=== PATIENT | male | born 1950 | race Caucasian/White ===

== ENCOUNTER 2019-11-14 08:28 | Inpatient (IN) | payer MEDICARE ==
[~2019-11-14] VITALS: Ht 188 cm; Wt 105.2 kg
[2019-11-14] MEDS ORDERED: IV NORMAL SALINE 1,000ML 1,000 ML IV ONE (08:45)
--- NOTE | 2019-11-14 08:46 | PHYS DOC ---
General Adult EDM: Chief Complaint: ALTERED MENTAL STATUS HPI: HPI: 69-year-old male presents via EMS from his rehab facility. He was brought here with reported altered mental status. Last known well was last night. He has reported dementia, but is typically alert and oriented. He is able to tell us h is name and Social Security number, but his answers do not really make sense to any other questions. When I asked him if he has any pain he states "28 or 38". He occasionally chuckles to himself. He is unable to provide any other useful history. Review of Systems: Review of Systems: Unable to obtain due to altered mental status Heart Score: Risk Factors: Risk Factors: DM, Current or recent (<one month) smoker, HTN, HLP, family history of CAD, obesity. Risk Scores: Score 0 - 3: 2.5% MACE over next 6 weeks - Discharge Home Score 4 - 6: 20.3% MACE over next 6 weeks - Admit for Clinical Observation Score 7 - 10: 72.7% MACE over next 6 weeks - Early Invasive Strategies Current Medications: Current Meds: Current Medications Medications (Trade) Dose Ordered Sig/Jerome Start Time Stop Time Status Last Admin Dose Admin Sodium Chloride 1,000 ml @ 1,000 mls/hr 1X ONCE 11/14/19 08:45 11/14/19 09:44 Allergies: Allergies: Allergies Coded Allergies Type Severity Reaction Last Updated Verified No Known Drug Allergies 11/14/19 No Physical Exam: PE: Constitutional: Well developed, well nourished, no acute distress. [] HENT: Normocephalic, atraumatic, bilateral external ears normal, oropharynx very dry, no oral exudates, nose normal. [] Eyes: PERRLA, EOMI, conjunctiva normal, no discharge. [] Neck: No tenderness, supple, no stridor. [] Cardiovascular: Heart rate 107, regular rhythm, no murmur [] Lungs & Thorax: Bilateral breath sounds clear to auscultation [] Abdomen: Bowel sounds normal, soft, suprapubic tenderness, no masses, no pulsatile masses. [] Skin: Warm, dry, scaly, no erythema, no rash. [] Back: No tenderness, no CVA tenderness. [] Extremities: No tenderness, no cyanosis, cam boot on left leg. [] Neurologic: Alert to person, normal motor function, normal sensory function, no focal deficits noted. [] Psychologic: Unable to ascertain [] EKG: EKG: Sinus tachycardia, rate 107, leftward axis, no ST elevations or depressions. [] Radiology/Procedures: Radiology/Procedures: [] Impressions: CHEST AP ONLY INDICATION: AMS COMPARISON STUDY: None. FINDINGS: Lungs: Normal lung volume. No confluent consolidation. Slight central vascular indistinctness. Pleura: No pleural effusion or pneumothorax. Heart and Mediastinum: Cardiomegaly. Great vessels of the thorax are normal. IMPRESSION: Slight central vascular indistinctness, possibly trace interstitial edema. No confluent consolidation. Electronically signed by: Olu Hernandes MD (11/14/2019 9:11 AM) [id number] DICTATED AND SIGNED BY: OLU HERNANDES MD DATE: 11/14/19 0911 CC: BRAVO WHITE DO; POLLO MONACO MD ~ CT HEAD WO CONTRAST Date: 11/14/2019 8:31 AM Clinical Indication: AMS Comparison: None. Technique: 5 mm axial tomographic images were obtained of the head without contrast. These were viewed on brain and bone windows. One or more of the following dose reduction techniques were utilized: Automated exposure control (AEC), Adjustment of mA and/or kV according to patient size, Use of iterative reconstruction technique such as ASiR, CT scan done according to ALARA and image gently/image wisely Findings: Moderate generalized cerebral and cerebellar volume loss. Moderate nonspecific periventricular hypoattenuation, most commonly seen with chronic small vessel ischemic disease. Calcified atherosclerosis of the bilateral cavernous and paraclinoid internal carotid arteries and intracranial vertebral arteries. Right thalamic hypoattenuating focus. Chronic left cerebellar lacunar infarcts. No intra- or extra-axial mass or fluid collection. No acute hemorrhage. The ventricles are normal in size, shape, and morphology. The carlos-white matter junction is normal. The subarachnoid cisterns are patent. Opacification of the right maxillary sinus with slight outward bowing of the medial and posterior sanderson, may be due to mucocele. Mucoperiosteal reaction consistent with chronic sinusitis. The visualized portions of the orbits and globes are normal. The mastoid air cells are clear. The clerical supervisor topogram shows no lytic lesion or fracture. Impression: 1. No acute hemorrhage or loss of carlos-white differentiation. 2. Right thalamic hypoattenuating focus, probably chronic lacunar infarct although no priors for comparison. Additional chronic left cerebellar lacunar infarcts. 3. Moderate cerebral volume loss. Moderate chronic small vessel ischemic disease. 4. Opacification of the right maxillary sinus with slight outward bowing of the medial and posterior sanderson, may be due to mucocele. Mucoperiosteal reaction consistent with chronic sinusitis Electronically signed by: Olu Hernandes MD (11/14/2019 9:09 AM) [id number] DICTATED AND SIGNED BY: OLU HERNANDES MD DATE: 11/14/19908 CC: BRAVO WHITE DO; POLLO MONACO MD ~ CT CHEST ABD PELVIS W/CONTRAST Clinical Indication: Suprapubic pain, abnormal chest radiograph COMPARISON: Chest radiograph 11/14/2019 TECHNIQUE: Multiple contiguous axial images were obtained throughout the chest, abdomen, and pelvis with the use of IV contrast. Axial images were reformatted into coronal and sagittal planes. 75 mL Omnipaque 300 was administered. One or more of the following dose reduction techniques were utilized: Automated exposure control (AEC), Adjustment of mA and/or kV according to patient size, Use of iterative reconstruction technique such as ASiR, CT scan done according to ALARA and image gently/image wisely. Findings: The thyroid is symmetric. There is no axillary, mediastinal, or hilar adenopathy. The thoracic aorta diameter is normal. Cardiomegaly. Coronary artery atherosclerotic disease There is no pericardial effusion. The central airways are patent. Bilateral subpleural reticulation and ground glass opacities. Bilateral lower lobe traction bronchiolectasis. No pleural effusion is observed. There is no pneumothorax. Cystic focus along the uncinate process of the pancreas measuring 2.8 x 2.1 cm. The liver, gallbladder, and adrenal glands are unremarkable. Calcified splenic granulomas. No hydronephrosis or opaque urinary calculi There is no significant mesenteric or retroperitoneal adenopathy identified. There is no evidence of free intraperitoneal fluid or pneumoperitoneum. Small hiatal hernia. Extensive sigmoid colon predominant diverticulosis. Trace inflammation around diverticula along the proximal sigmoid colon (series 5 image 121, series 8 image 39). Urinary bladder is decompressed by Hunt catheter. There is no significant pelvic ascites. No significant iliac or inguinal adenopathy is identified. Degenerative changes of the spine. Small right greater than left fat-containing inguinal hernias. IMPRESSION: 1. Extensive diverticulosis with trace inflammation around a sigmoid region diverticula, which may represent a mild acute diverticulitis. 2. Bilateral lung subpleural reticulation and mild groundglass opacities with some traction bronchiolectasis. This likely represents fibrotic change, although some superimposed interstitial edema or infection would be difficult to exclude. 3. Indeterminate 2.8 cm cystic focus along the uncinate process of the pancreas. Recommend comparison with prior outside imaging or further characterization with nonemergent contrast-enhanced MRI abdomen. Electronically signed by: Olu Hernandes MD (11/14/2019 11:51 AM) [id number] DICTATED AND SIGNED BY: OLU HERNANDES MD DATE: 11/14/19 1151 CC: BRAVO WHITE DO; POLLO MONACO MD ~ Course & Med Decision Making: Course & Med Decision Making Pertinent Labs and Imaging studies reviewed. (See chart for details) The patient's chest x-ray is negative for focal pneumonia. His head CT is negative for acute findings. CT of the chest abdomen and pelvis shows possible mild diverticulitis. There is also bilateral groundglass opacities of the lungs. This is thought to likely be fibrotic change. We will do a COVID-19 swab for the patient. See official read for more details. I spoke with Dr. Parker and he has accepted the patient for admission. I have given the patient an initial dose of Zosyn in the ER. [] Dragon Disclaimer: Dragon Disclaimer: This electronic medical record was generated, in whole or in part, using a voice recognition dictation system. Departure Departure: Impression: Primary Impression: Ground glass opacity present on imaging of lung Additional Impressions: Diverticulitis AMS (altered mental status) Qualified Codes: R41.0 - Disorientation, unspecified Disposition: ADMITTED INPATIENT Admitting Physician: Lavon Parker Condition: STABLE Referrals: PCP,UNKNOWN (PCP) Justification of Admission: Justification of Admission: Justification of Admission Dx: Comment: Comments: diverticulitis, AMS, ground glass lung opacities BRAVO WHITE DO Nov 14, 2019 08:46
[2019-11-14 09:02] LABS: BASO # 0.1 x10^3/uL (0.0-0.2); BASO % 1 % (0-3); EOS # 0.1 x10^3/uL (0.0-0.7); EOS % 1 % (0-3); HEMATOCRIT 38.5 % (39.0-53.0); HEMOGLOBIN 13.1 g/dL (13.0-17.5); LYMPH # 0.8 x10^3/uL (1.0-4.8); LYMPH % 10 % (24-48); MEAN CORPUSCULAR HEMOGLOBIN 30 pg (25-35); MEAN CORPUSCULAR HGB CONC 34 g/dL (31-37); MEAN CORPUSCULAR VOLUME 90 fL (79-100); MONO # 0.6 x10^3/uL (0.0-1.1); MONO % 7 % (0-9); NEUT # 6.7 x10^3uL (1.8-7.7); NEUT % 81 % (31-73); PLATELET COUNT 299 x10^3/uL (140-400); WHITE BLOOD COUNT 8.2 x10^3/uL (4.0-11.0)
--- NOTE | 2019-11-14 09:12 | RAD ---
CT HEAD WO CONTRAST Date: 11/14/2019 8:31 AM Clinical Indication: AMS Comparison: None. Technique: 5 mm axial tomographic images were obtained of the head without contrast. These were viewed on brain and bone windows. One or more of the following dose reduction techniques were utilized: Automated exposure control (AEC), Adjustment of mA and/or kV according to patient size, Use of iterative reconstruction technique such as ASiR, CT scan done according to ALARA and image gently/image wisely Findings: Moderate generalized cerebral and cerebellar volume loss. Moderate nonspecific periventricular hypoattenuation, most commonly seen with chronic small vessel ischemic disease. Calcified atherosclerosis of the bilateral cavernous and paraclinoid internal carotid arteries and intracranial vertebral arteries. Right thalamic hypoattenuating focus. Chronic left cerebellar lacunar infarcts. No intra- or extra-axial mass or fluid collection. No acute hemorrhage. The ventricles are normal in size, shape, and morphology. The carlos-white matter junction is normal. The subarachnoid cisterns are patent. Opacification of the right maxillary sinus with slight outward bowing of the medial and posterior sanderson, may be due to mucocele. Mucoperiosteal reaction consistent with chronic sinusitis. The visualized portions of the orbits and globes are normal. The mastoid air cells are clear. The informatica mdm developer topogram shows no lytic lesion or fracture. Impression: 1. No acute hemorrhage or loss of carlos-white differentiation. 2. Right thalamic hypoattenuating focus, probably chronic lacunar infarct although no priors for comparison. Additional chronic left cerebellar lacunar infarcts. 3. Moderate cerebral volume loss. Moderate chronic small vessel ischemic disease. 4. Opacification of the right maxillary sinus with slight outward bowing of the medial and posterior sanderson, may be due to mucocele. Mucoperiosteal reaction consistent with chronic sinusitis Electronically signed by: Addy Hernandes MD (11/14/2019 9:09 AM) [id number]
[2019-11-14 09:13] LABS: CALCIUM 9.8 mg/dL (8.5-10.1); CREATININE 1.2 mg/dL (0.7-1.3); GFR 59.7; POTASSIUM 3.8 mmol/L (3.5-5.1)
--- NOTE | 2019-11-14 09:14 | RAD ---
CHEST AP ONLY INDICATION: AMS COMPARISON STUDY: None. FINDINGS: Lungs: Normal lung volume. No confluent consolidation. Slight central vascular indistinctness. Pleura: No pleural effusion or pneumothorax. Heart and Mediastinum: Cardiomegaly. Great vessels of the thorax are normal. IMPRESSION: Slight central vascular indistinctness, possibly trace interstitial edema. No confluent consolidation. Electronically signed by: Addy Hernandes MD (11/14/2019 9:11 AM) [id number]
[2019-11-14 09:20] LABS: ALBUMIN 3.2 g/dL (3.4-5.0); ALBUMIN/GLOBULIN RATIO 0.7 (1.0-1.7); TOTAL BILIRUBIN 0.6 mg/dL (0.2-1.0); TOTAL PROTEIN 7.9 g/dL (6.4-8.2)
[2019-11-14 09:39] LABS: BACTERIA,URINE 0 /HPF (0-FEW); BILIRUBIN,URINE NEG (NEG); CLARITY,URINE HAZY; COLOR,URINE YELLOW; GLUCOSE,URINE NEG (NEG); NITRITE,URINE NEG (NEG); RBC,URINE OCC /HPF (0-2); SQUAMOUS EPITHELIAL CELL,UR FEW /LPF; UROBILINOGEN,URINE 0.2 mg/dL (0.2 mg/dL); WBC,URINE OCC /HPF (0-4)
[2019-11-14] MEDS ORDERED: IOHEXOL 300 MG/ML 75 ML VIAL. IV ONE (10:30)
--- NOTE | 2019-11-14 11:54 | RAD ---
CT CHEST ABD PELVIS W/CONTRAST Clinical Indication: Suprapubic pain, abnormal chest radiograph COMPARISON: Chest radiograph 11/14/2019 TECHNIQUE: Multiple contiguous axial images were obtained throughout the chest, abdomen, and pelvis with the use of IV contrast. Axial images were reformatted into coronal and sagittal planes. 75 mL Omnipaque 300 was administered. One or more of the following dose reduction techniques were utilized: Automated exposure control (AEC), Adjustment of mA and/or kV according to patient size, Use of iterative reconstruction technique such as ASiR, CT scan done according to ALARA and image gently/image wisely. Findings: The thyroid is symmetric. There is no axillary, mediastinal, or hilar adenopathy. The thoracic aorta diameter is normal. Cardiomegaly. Coronary artery atherosclerotic disease There is no pericardial effusion. The central airways are patent. Bilateral subpleural reticulation and ground glass opacities. Bilateral lower lobe traction bronchiolectasis. No pleural effusion is observed. There is no pneumothorax. Cystic focus along the uncinate process of the pancreas measuring 2.8 x 2.1 cm. The liver, gallbladder, and adrenal glands are unremarkable. Calcified splenic granulomas. No hydronephrosis or opaque urinary calculi There is no significant mesenteric or retroperitoneal adenopathy identified. There is no evidence of free intraperitoneal fluid or pneumoperitoneum. Small hiatal hernia. Extensive sigmoid colon predominant diverticulosis. Trace inflammation around diverticula along the proximal sigmoid colon (series 5 image 121, series 8 image 39). Urinary bladder is decompressed by Hunt catheter. There is no significant pelvic ascites. No significant iliac or inguinal adenopathy is identified. Degenerative changes of the spine. Small right greater than left fat-containing inguinal hernias. IMPRESSION: 1. Extensive diverticulosis with trace inflammation around a sigmoid region diverticula, which may represent a mild acute diverticulitis. 2. Bilateral lung subpleural reticulation and mild groundglass opacities with some traction bronchiolectasis. This likely represents fibrotic change, although some superimposed interstitial edema or infection would be difficult to exclude. 3. Indeterminate 2.8 cm cystic focus along the uncinate process of the pancreas. Recommend comparison with prior outside imaging or further characterization with nonemergent contrast-enhanced MRI abdomen. Electronically signed by: Addy Hernandes MD (11/14/2019 11:51 AM) [id number]
[2019-11-14] MEDS ORDERED: PIPERACILLIN/TAZOBACTAM 3.375 GM in IV NORMAL SALINE 50ML 50 ML IV ONE (12:30)
[2019-11-14] MEDS ORDERED: IV NORMAL SALINE 50ML 50 ML ONE (12:38)
[2019-11-14] MEDS ORDERED: PIPERACILLIN/TAZOBACTAM 3.375 GM VIAL IV ONE (12:38)
[2019-11-14] MEDS ORDERED: HALOPERIDOL LACT 5 MG/ML VIAL. IVP ONE (13:00)
[2019-11-14 13:54] VITALS: BP 148/90
[2019-11-14] MEDS ORDERED: IV NORMAL SALINE 1,000ML 1,000 ML IV SCH (15:00)
--- NOTE | 2019-11-14 15:27 | EKG ---
[address] [address] Test Date: 2019-11-14 Test Time: 08:32:30 Pat Name: BRIAN NEAL Department: Room: Gender: M Vocal Artist: NOEL : [id number] Requested By: BRAVO WHITE Order Number: [id number] Reading MD: Measurements Intervals [place] Rate: 107 P: 47 ND: 144 QRS: -26 QRSD: 100 T: 29 QT: 354 QTc: 478 Interpretive Statements SINUS TACHYCARDIA LEFTWARD AXIS LOW LIMB LEAD VOLTAGE INCOMPLETE RIGHT BUNDLE BRANCH BLOCK NO SPECIFIC ECG ABNORMALITIES RI6.02 No previous ECG available for comparison
[2019-11-14] MEDS: HYDROcodone/APAP 5/325MG 1 TAB TABLET PO PRN ×2 (16:35→16:46)
[2019-11-14] MEDS: ACETAMINOPHEN 650 MG SUPP.RECT. PR PRN (16:49)
--- NOTE | 2019-11-14 17:40 | NUR ---
Pt arrived to ICU-2 via EMS, this nurse and warehouse picker at bedside. Pt did not have any belongings. Pt agitated with any movement or intervention but re-directable. Pt alert to self only, speech is garbled. Temp at admission 99.7 axillary. Skin assesment revealed a pressure ulcer on L buttock, R great toe nail removed, and penis meatus bleeding from when he pulled out indwelling altamirano catheter in ER, no external trauma noted. Ointment was put on pressure ulcer, toe nail bed cleaned with wound cleanser and redressed with bandaid, coccyx skin is race appropriate and intact but mepilex bandage was placed prophylactically. Pt HR elevated in 120's RR 20-30~1630, axillary temp 101.3. Pt given 650mg rectal tylenol. This nurse called patients son/Marco RENEE who informed staff that his father is to be a DNR status.
[2019-11-14] MEDS: PIPERACILLIN/TAZOBACTAM 3.375 GM in IV NORMAL SALINE 50ML 50 ML IV SCH (18:00)
--- NOTE | 2019-11-14 18:14 | NUR ---
rechecked temp -> 102.0, Dr Parker notified of change in status. Telephone orders to DC IVF, IV lopressor PRN, updated code status orders and order AM labs.
[2019-11-14] MEDS: METOPROLOL TARTRATE 5 MG/5 ML VIAL. IV PRN ×2 (19:03→20:29)
[2019-11-14 20:50] VITALS: BP 130/76
[2019-11-14 23:00] VITALS: BP 146/78
[2019-11-15] MEDS: PIPERACILLIN/TAZOBACTAM 3.375 GM in IV NORMAL SALINE 50ML 50 ML IV SCH ×5 (00:57→23:53)
[2019-11-15 03:00] VITALS: BP 127/87
[2019-11-15 06:00] VITALS: BP 133/90
[2019-11-15] MEDS: ACETAMINOPHEN 650 MG SUPP.RECT. PR PRN (06:02)
[2019-11-15 09:05] LABS: BASO # 0.1 x10^3/uL (0.0-0.2); BASO % 1 % (0-3); EOS # 0.1 x10^3/uL (0.0-0.7); EOS % 1 % (0-3); HEMATOCRIT 38.7 % (39.0-53.0); LYMPH # 1.7 x10^3/uL (1.0-4.8); LYMPH % 18 % (24-48); MEAN CORPUSCULAR HEMOGLOBIN 30 pg (25-35); MEAN CORPUSCULAR HGB CONC 34 g/dL (31-37); MEAN CORPUSCULAR VOLUME 90 fL (79-100); MONO # 0.9 x10^3/uL (0.0-1.1); MONO % 10 % (0-9); NEUT # 6.7 x10^3uL (1.8-7.7); NEUT % 71 % (31-73); PLATELET COUNT 271 x10^3/uL (140-400); RED BLOOD COUNT 4.32 x10^6/uL (4.30-5.70); RED CELL DISTRIBUTION WIDTH 14.1 % (11.5-14.5); WHITE BLOOD COUNT 9.4 x10^3/uL (4.0-11.0)
[2019-11-15 09:16] LABS: CREATININE 1.1 mg/dL (0.7-1.3); POTASSIUM 3.3 mmol/L (3.5-5.1)
--- NOTE | 2019-11-15 09:30 | HP ---
ADMIT DATE: 11/15/2019 ATTENDING PHYSICIAN: Dr. Bajwa. CHIEF COMPLAINT: Altered mentation. HISTORY OF PRESENT ILLNESS: The patient is a 69-year-old gentleman who is a [facility] resident due to profound dementia. His baseline is quite demented. He had new onset of altered mentation. He was able to say his name and social security number in the past. He was rambling. He was febrile. He was sent here for further evaluation. In the ED, the CT of the head demonstrated no acute stroke. He has significant atrophy and old strokes. Chest x-ray was fairly unremarkable; however, the CT of the abdomen showed extensive diverticulosis and early diverticulitis around the sigmoid colon diverticula. He has bilateral subpleural reticulation and ground glass opacities due to scarring in the base of the lungs. There is an intermediate 2.8 cystic focus along the uncinate process of the pancreas. No obstruction identified. He was therefore admitted with altered mentation and acute diverticulitis. PAST MEDICAL HISTORY: Gleaned from the old chart. He is unable to give much history. He has a longstanding history of hypertension, COPD, degenerative arthritis and generalized debilitation. CURRENT MEDICATIONS: Reviewed. At the [facility], he was taking a small dosage of metoprolol, aspirin, Cymbalta, and Tylenol. Zosyn was started in the ED. FAMILY HISTORY: Unobtainable. REVIEW OF SYSTEMS: Unobtainable. ALLERGIES: He has no recorded drug allergies. PHYSICAL EXAMINATION: GENERAL: When I saw him, this is an obtunded elderly male who does respond to his name and that is about it. He still remains very lethargic. VITAL SIGNS: Initial blood pressure was 130/76 mmHg, temperature 101.1 degrees Fahrenheit this morning, pulse 98 and regular, oxygen saturation 97% on room air. HEENT: Head is without trauma. Pupils are reactive. Oropharynx is clear. NECK: Supple. No stridor. LUNGS: Shallow respirations. CARDIOVASCULAR: Showed regular heart tones. No gallops. Peripheral pulses are palpable and full. ABDOMEN: Obese, protuberant. Hypoactive bowel sounds. No guarding or rebound tenderness. EXTREMITIES: Show no cyanosis or edema. SKIN: Warm and dry. NEUROLOGIC: Profound dementia with obtundation. I am not familiar with him, so we really do not know what his baseline is at this time. LABORATORY STUDIES: His hemoglobin initially was 13.1 g/dL with white count of 8200. Chemistry panel: Sodium 137 mEq, potassium 3.8, creatinine is 1.2 mg/dL. The obligatory troponin levels unremarkable. Nonfasting blood sugar 134 mg/dL. ASSESSMENT: 1. A 69-year-old gentleman with altered mentation. 2. Febrile illness on the basis of acute diverticulitis of the sigmoid colon. 3. Profound dementia. 4. Hypertension. 5. Mild tachyarrhythmia treated with intravenous beta blockers. PLAN: 1. Admit to the inpatient unit. 2. COVID-19 swab pending. 3. Zosyn has been started for antibiotic therapy. 4. Clear liquids for now. 5. Serial chemistries. The patient is a DNR per advanced directives. We should respect these wishes. JASON BAJWA MD DR: ZULEIMA/brit JOB#: [id number] / [id number]
[2019-11-15] MEDS: ASPIRIN ENTERIC COATED 81 MG TABLET.DR. PO SCH (10:00)
[2019-11-15] MEDS: DULoxetine HCL 60 MG CAPSULE.DR PO SCH (10:00)
--- NOTE | 2019-11-15 10:26 | NUR ---
Attempted to give patient his AM medications, was able to sip water and eat apple sauce with assistance. He refused to swallow pills though, even with applesauce. He pocketed pills in his mouth and then subsequently spit them out. He refused further sips of water or bites of apple sauce. Medication education provided, patient refused AM meds.
[2019-11-15 11:00] VITALS: BP 111/74
[2019-11-15 16:00] VITALS: BP 137/82
[2019-11-15] MEDS: ACETAMINOPHEN 325 MG TABLET PO PRN (18:04)
[2019-11-15] MEDS: METOPROLOL TARTRATE 5 MG/5 ML VIAL. IV PRN (19:36)
[2019-11-16] MEDS: PIPERACILLIN/TAZOBACTAM 3.375 GM in IV NORMAL SALINE 50ML 50 ML IV SCH ×3 (06:00→20:20)
[2019-11-16 06:14] VITALS: BP 125/64
[2019-11-16] MEDS ORDERED: DULO60CA6 PO (07:47)
[2019-11-16] MEDS ORDERED: HYDR-3165 PO (07:47)
[2019-11-16] MEDS ORDERED: CALC300T5 PO (07:47)
[2019-11-16] MEDS ORDERED: TAMS0.4C97 PO (07:47)
[2019-11-16] MEDS ORDERED: ASPI-889 PO (07:47)
[2019-11-16] MEDS ORDERED: CLOB15CR TP (07:47)
[2019-11-16] MEDS: ACETAMINOPHEN 325 MG TABLET PO PRN (07:58)
[2019-11-16] MEDS: DULoxetine HCL 60 MG CAPSULE.DR PO SCH (07:58)
[2019-11-16] MEDS: ASPIRIN ENTERIC COATED 81 MG TABLET.DR. PO SCH (07:58)
[2019-11-16] MEDS: METOPROLOL TARTRATE 5 MG/5 ML VIAL. IV PRN (07:59)
--- NOTE | 2019-11-16 08:46 | NUR ---
IP: patient PUI for COVID-19, requires contact and airborne precautions.
[2019-11-16 09:09] VITALS: BP 105/76
[2019-11-16 09:20] LABS: BASO # 0.1 x10^3/uL (0.0-0.2); BASO % 1 % (0-3); EOS # 0.4 x10^3/uL (0.0-0.7); EOS % 6 % (0-3); HEMATOCRIT 39.2 % (39.0-53.0); HEMOGLOBIN 13.2 g/dL (13.0-17.5); LYMPH # 1.4 x10^3/uL (1.0-4.8); LYMPH % 18 % (24-48); MEAN CORPUSCULAR HEMOGLOBIN 30 pg (25-35); MEAN CORPUSCULAR HGB CONC 34 g/dL (31-37); MEAN CORPUSCULAR VOLUME 89 fL (79-100); MONO # 0.7 x10^3/uL (0.0-1.1); MONO % 9 % (0-9); NEUT # 5.2 x10^3uL (1.8-7.7); NEUT % 67 % (31-73); PLATELET COUNT 267 x10^3/uL (140-400); RED CELL DISTRIBUTION WIDTH 14.1 % (11.5-14.5); WHITE BLOOD COUNT 7.8 x10^3/uL (4.0-11.0)
[2019-11-16 09:34] LABS: CALCIUM 8.8 mg/dL (8.5-10.1); CREATININE 1.3 mg/dL (0.7-1.3); GFR 54.4; POTASSIUM 3.1 mmol/L (3.5-5.1)
[2019-11-16] MEDS ORDERED: POTASSIUM CHLORIDE 20 MEQ TABLET.ER. PO ONE (10:00)
[2019-11-16 11:00] VITALS: BP 111/74
--- NOTE | 2019-11-16 11:45 | PN ---
DATE: 11/16/2019 ATTENDING PHYSICIAN: Dr. Bajwa. CHIEF COMPLAINT: Altered mentation and fevers. SUBJECTIVE: The patient is much more alert today and he has woken up. He did respond to some questions. He knows his name and Social Security number. He does not know where he is or the time. OBJECTIVE FINDINGS: VITAL SIGNS: His temperature ____ 100.8 yesterday afternoon. This morning, I have a reading of 99.1 degrees Fahrenheit. Blood pressure is 125/64. Heart rate alternates between 80 and a 125-130 per minute. He has responded to intermittent doses of intravenous beta blockade. His oxygen saturations are 94% on room air. HEENT: Head is without trauma. Pupils are reactive. Sclerae nonicteric. Oropharynx is clear. NECK: Supple. LUNGS: Fairly good breath sounds. No rhonchi. CARDIOVASCULAR: Showed regular heart tones. No obvious gallops. Peripheral pulses are palpable and full. ABDOMEN: Distended. He has very minimal guarding on deep palpation of the left lower quadrant. There is no rebound tenderness. There are no masses palpated and bowel sounds are hypoactive. EXTREMITIES: Without edema. NEUROLOGIC FINDINGS: He is pleasantly confused, but not agitated. SKIN: Warm and dry. LABORATORY STUDIES: There is a ____ that is ordered and is pending that has not been resulted yet. I reviewed his CT of the abdomen again and the diverticulosis is extensive and the diverticulitis is mild. ASSESSMENT: 1. A 69-year-old gentleman with altered mentation improved. 2. Acute diverticulitis of sigmoid colon. 3. Underlying dementia. 4. Intermittent tachyarrhythmia, not symptomatic at this time. 5. Febrile illness on the basis of diverticulitis. 6. Essential hypertension, currently normotensive. PLAN: 1. Keep in the unit. 2. COVID-19 swab is still pending. 3. Zosyn will be continued. 4. Flagyl added for increased coverage. 5. Advance diet as tolerated. 6. Serial chemistries. JASON BAJWA MD DR: ZULEIMA/brit JOB#: [id number] / [id number]
[2019-11-16 16:00] VITALS: BP 120/83
--- NOTE | 2019-11-16 18:17 | NUR ---
PT neg covid. PT had some moments of lucidity, than back to confused. PT is cont vs incont based on mentation. Pt is unable to verbalize understanding of poc. PT did tolerate regular food today. Marium SAHU
[2019-11-16 19:50] VITALS: BP 134/85
[2019-11-16] MEDS: CLOBETASOL EMOLLIENT 0.05% TOPICAL CREAM 15GM TUBE. TP PRN (20:48)
[2019-11-16] MEDS: METOPROLOL SUCC 24HR ER 50 MG TAB.ER.24H. PO SCH (20:48)
[2019-11-16] MEDS ORDERED: TAMSULOSIN 0.4 MG CAP.ER.24H. PO SCH (21:00)
[2019-11-17] MEDS: PIPERACILLIN/TAZOBACTAM 3.375 GM in IV NORMAL SALINE 50ML 50 ML IV SCH ×3 (00:01→12:30)
[2019-11-17 02:54] VITALS: BP 126/77
--- NOTE | 2019-11-17 04:55 | NUR ---
Pt took HS medications crushed in ice cream, then independently fed himself the rest. Pt is cont vs incont based on mentation but was able to void in urinal x2 with assist. Pt slept off and on during night. Confused most of the night, talking in room about various topics (cattle cars, baseball, leaving for work, being caught stealing...etc). Pt had some very small moments of lucidity, but then back to baseline confused. Pt would often yell out to staff that walked by. Bed alarm on.
[2019-11-17 06:00] VITALS: BP 138/86
[2019-11-17 06:41] LABS: BASO # 0.1 x10^3/uL (0.0-0.2); BASO % 1 % (0-3); EOS # 0.4 x10^3/uL (0.0-0.7); EOS % 5 % (0-3); HEMOGLOBIN 12.8 g/dL (13.0-17.5); LYMPH # 1.6 x10^3/uL (1.0-4.8); LYMPH % 19 % (24-48); MEAN CORPUSCULAR HEMOGLOBIN 30 pg (25-35); MEAN CORPUSCULAR HGB CONC 34 g/dL (31-37); MEAN CORPUSCULAR VOLUME 89 fL (79-100); MONO # 0.9 x10^3/uL (0.0-1.1); MONO % 11 % (0-9); NEUT # 5.4 x10^3uL (1.8-7.7); NEUT % 64 % (31-73); PLATELET COUNT 279 x10^3/uL (140-400); RED BLOOD COUNT 4.28 x10^6/uL (4.30-5.70); RED CELL DISTRIBUTION WIDTH 13.8 % (11.5-14.5); WHITE BLOOD COUNT 8.4 x10^3/uL (4.0-11.0)
[2019-11-17 06:52] LABS: CALCIUM 9.1 mg/dL (8.5-10.1); CREATININE 1.3 mg/dL (0.7-1.3); GFR 54.4; POTASSIUM 3.3 mmol/L (3.5-5.1)
[2019-11-17] MEDS: METOPROLOL SUCC 24HR ER 50 MG TAB.ER.24H. PO SCH (07:59)
[2019-11-17] MEDS: CLOBETASOL EMOLLIENT 0.05% TOPICAL CREAM 15GM TUBE. TP PRN (07:59)
[2019-11-17] MEDS: DULoxetine HCL 60 MG CAPSULE.DR PO SCH (07:59)
[2019-11-17] MEDS: ASPIRIN ENTERIC COATED 81 MG TABLET.DR. PO SCH (07:59)
[2019-11-17] MEDS: HYDROcodone/APAP 5/325MG 1 TAB TABLET PO PRN (07:59)
[2019-11-17] MEDS ORDERED: ONDANSETRON PF 4 MG/2 ML VIAL. ONE (08:04)
[2019-11-17] MEDS ORDERED: LACTOBACILLUS RHAMNOSUS GG 1 CAPSULE. PO SCH (09:00)
--- NOTE | 2019-11-17 10:53 | DS ---
DATE OF DISCHARGE: 11/17/2019 ATTENDING PHYSICIAN: Dr. Bajwa. FINAL DISCHARGE DIAGNOSES: 1. Altered mentation, resolved. 2. Febrile illness, acute diverticulitis of sigmoid colon, improved. 3. Profound dementia, back to baseline. 4. Essential hypertension. 5. Mild tachyarrhythmia treated with beta blockers. HISTORY AND PHYSICAL: The patient is a 69-year-old gentleman, resident of [facility]. He has underlying dementia. He was sent into the ED with altered mentation, low-grade fevers. A chest x-ray was particularly nondiagnostic; however, the CT of the abdomen showed extensive diverticulosis and early diverticulitis around the sigmoid colon. He was admitted for further treatment and evaluation. There is also an intermediate 2.8 cystic focus along the uncinate process of the pancreas. Etiology of this is unclear. This will be followed up. No bowel obstruction was identified. PHYSICAL EXAMINATION: Please see the dictated note. PERTINENT LABORATORY AND X-RAY STUDIES: Admission hemoglobin was 13.1 g/dL, white count 8200, repeated was 12.8 grams with a white count of 8400. Chemistry panel showed stable BUN and creatinine. Creatinine was 1.3 mg/dL, potassium 3.3 mEq, sodium 138. This will be followed up as an outpatient. He was not symptomatic. COURSE IN THE HOSPITAL: The patient was treated with 4 days of intravenous antibiotics, Zosyn, dose adjusted for renal clearance as well as Flagyl. He did well. He was more alert. Obtundation resolved and he was back to his baseline. He remained very confused as to person, place or time. On the fourth hospital day, his vital signs were quite stable. His blood pressure was 138/86 with a pulse of 81 and regular. He has some tachyarrhythmias, which was treated with empiric beta blockade. Temperature was afebrile with a temperature of 97.8 degrees Fahrenheit, and oxygen saturation were 96% on room air. His lungs were clear. Abdomen was soft and his left lower quadrant pain and discomfort had subsided. Therefore, he was ready for discharge back to [facility]. I recommended 7 more days of Augmentin 875 b.i.d. He should continue his aspirin 81 mg daily, Cymbalta 60 mg daily, hydrocodone p.r.n. pain, Flomax as well as metoprolol 50 b.i.d. I suggested some potassium supplementation, K-Dur 20 mEq daily for 7 days. He remains a DNR per advanced directive. He was discharged from our hospital in stable condition with explicit instructions and followup care. JASON BAJWA MD DR: [email or web address]/brit JOB#: [id number] / [id number] POLLO Tinoco MD
[2019-11-17 11:28] VITALS: BP 142/86
--- NOTE | 2019-11-17 11:57 | NUR ---
pt confused most of the day. Unable to follow commands or participate in PT/OT. PT to go back to [facility] today. Will give report prior to departure. Antony SAHU
[2019-11-17 12:31] VITALS: BP 146/88
--- NOTE | 2019-11-17 14:17 | NUR ---
report given to emely moreau. Pt will go by [facility]. Antony SAHU
== END 2019-11-17 16:00 | DRG 391 ==
LOC: ER 08:28 → ICU 12:40
PROVIDERS: ADMIT Hospitalist; ATTEND Hospitalist
DX: K57.32 Diverticulitis of large intestine without perforation or abscess without bleeding (principal); G93.41 Metabolic encephalopathy; F03.90 Unspecified dementia, unspecified severity, without behavioral disturbance, psychotic disturbance, mood disturbance, and anxiety; I10 Essential (primary) hypertension; J44.9 Chronic obstructive pulmonary disease, unspecified; R00.0 Tachycardia, unspecified; K57.30 Diverticulosis of large intestine without perforation or abscess without bleeding; Z20.828 Contact with and (suspected) exposure to other viral communicable diseases; M19.90 Unspecified osteoarthritis, unspecified site; Z66 Do not resuscitate; Z79.82 Long term (current) use of aspirin; Z86.73 Personal history of transient ischemic attack (TIA), and cerebral infarction without residual deficits
CPT/HCPCS: 36415; 51702; 70450; 71045; 71260; 74177; 80048; 80053; 81001; 82140; 84484; 85025; 87040; 93005; 96361; 96365; J2543; J3490; Q9967; 99285-25; J7030; U0003-CS

== ENCOUNTER → 2021-03-10 | Outpatient (CLI) | payer MEDICARE ==
[~2021-03-10] MED LIST: ASPI-889 PO; CALC300T5 PO; CLOB15CR TP; DULO60CA7 PO; HYDR-3165 PO; IOHEXOL 300 MG/ML 75 ML VIAL. IV ONE; TAMS0.4C97 PO
--- NOTE | 2021-03-10 13:28 | RAD ---
PQRS Compliance Statement: One or more of the following individualized dose reduction techniques were utilized for this examinat ion: 1. Automated exposure control 2. Adjustment of the mA and/or kV according to patient size 3. Use of iterative reconstruction technique CT abdomen/pelvis with contrast 03/10/2021 11:04 AM INDICATION: Abnormal liver enzymes. Abdominal pain. COMPARISON: CT chest, abdomen and pelvis 11/14/2019 TECHNIQUE: Multiple axial CT images of the abdomen and pelvis were obtained after the intravenous adm inistration of 60 mL Omnipaque 300. Coronal and sagittal reformats are provided. FINDINGS: There is subsegmental atelectasis at the lung bases. Heart size within normal limits. Three -vessel coronary vascular calcifications are present. There is diffuse hypoattenuation the hepatic parenchyma suggestive of hepatic steatosis. High attenua tion adjacent to the gallbladder fossa favors focal fatty sparing. Portal venous system is widely patent. Calcifications within the spleen suggest sequela prior granulo matous exposure. There is a cystic lesion within the uncinate process of the pancreas measuring 3.2 x 2.7 x 2.7 cm. There is no mural enhancement, septations or enhancing nodule. Calcified peripancreati c lymph node measures 10 mm. Adrenal glands are normal in appearance. The kidneys enhance symmetrically. There is no suspicious renal mass. There is no hydronephrosis. The re are no suspected calculi within the kidneys, ureters or urinary bladder. Mild calcified atheromato us plaque. 1.4 cm simple cyst in inferior left kidney. 5 mm cyst in the inferior pole the right kidne y. Moderate diverticulosis without adjacent inflammation. The kidneys enhance symmetrically. There is no suspicious renal mass. There is no hydronephrosis. There are no suspected calculi within the kidneys , ureters or urinary bladder. Moderate fat-containing right inguinal hernia. Urinary bladder is withi n normal limits given degree of distention. No suspicious osseous abnormality is identified. IMPRESSION: 1. Stable cystic lesion uncinate process measuring 3.2 x 2.7 x 2.7 cm. MRCP is recommended for furthe r evaluation versus endoscopic ultrasound. 2. Diffuse hepatic steatosis with focal fatty sparing along the gallbladder fossa. 3. Fat-containing right inguinal hernia. 4. Moderate diverticulosis. Electronically signed by: Jemima Amato MD (03/10/2021 1:26 PM) [facility]
== END ==
LOC: CT 10:31
PROVIDERS: ATTEND Internal Medicine
DX: K76.0 Fatty (change of) liver, not elsewhere classified (principal); K40.90 Unilateral inguinal hernia, without obstruction or gangrene, not specified as recurrent; N28.1 Cyst of kidney, acquired; J98.11 Atelectasis; I25.10 Atherosclerotic heart disease of native coronary artery without angina pectoris; I70.0 Atherosclerosis of aorta; K57.90 Diverticulosis of intestine, part unspecified, without perforation or abscess without bleeding
CPT/HCPCS: 74177; Q9967